=== PATIENT | female | born 1985 | race Two or more races ===

== ENCOUNTER 2024-08-16 13:56 | Emergency (ER) | payer MEDICAID, SELFPAY ==
[2024-08-16 14:24] VITALS: BP 108/69; PULSE 63; RESP 18; TEMP 37.1; O2SAT 100; BMI 24.4
--- NOTE | 2024-08-16 14:27 | XR_ITS ---
Examination: CT brain head without contrast. 2-D sagittal coronal reconstructions Date and time of exam:August 16, 2024 1544 hours INDICATIONS: Intermittent severe headache beginning 3 weeks ago CTDI: vol (mGy):47.2 DLP: (mGycm):914 Technique: Multiple CT axial sections of the brain have been obtained, 5 mm slice thickness. Contrast has not been administered. 2-D sagittal, coronal reconstructions have been obtained Low dose protocols were performed. One or more of the following dose reduction techniques were used; automated exposure control, adjustment of the mA and/or KV according to patient size, use of iterative reconstruction technique. Findings: No significant ventricular enlargement. Intra-axial or extra-axial hemorrhage density is not seen. No mass effect or midline shift Basal cisterns are not remarkable. Fourth ventricle is midline. Cranial vault intact. Impression: Negative for acute hemorrhage, mass effect or midline shift If new onset headaches persist, consider elective brain MRI follow-up
[2024-08-16 15:33] LABS: Basophils # (Auto) 0.1 Thou/mm3 (0.0-0.2); Basophils % (Auto) 1 % (0-2.5); Eosinophils % (Auto) 0 % (0-10); Hematocrit 40.7 % (36.0-46.0); Immature Granulocytes % (Auto) 1 % (0-0); Immature Granulocytes Auto 0.05 Thou/mm3 (0.00-0.00); Lymphocytes # (Auto) 2.4 Thou/mm3 (1.0-4.8); Lymphocytes % (Auto) 23 % (10-50); Mean Corpuscular HGB Conc 34.4 g/dl (31.0-37.0); Mean Corpuscular Hemoglobin 30.5 pg (25.0-35.0); Mean Corpuscular Volume 89 fL (80-100); Monocytes # (Auto) 0.8 Thou/mm3 (0.0-0.8); Monocytes % (Auto) 8 % (0-12); Neutrophils # (Auto) 7.4 Thou/mm3 (1.8-7.7); Neutrophils % (Auto) 69 % (37-80); Nucleated Red Blood Cell % 0 /100 WBC (0); Platelet Count 299 Thou/mm3 (140-440); RDW Standard Deviation 38.8 fL (36.4-46.3); Red Blood Count 4.59 Miln/mm3 (4.00-5.20); White Blood Count 10.8 Thou/mm3 (3.6-11.0)
[2024-08-16 15:52] LABS: HCG,Qualitative Serum Negative
[2024-08-16 15:57] LABS: Alanine Aminotransferase 16 U/L (10-49); Albumin, Serum 4.3 gm/dL (3.5-5.0); Albumin/Globulin Ratio 1.7 (1.2-2.2); Alkaline Phosphatase 57 U/L (46-116); Anion Gap 7 (7-16); Aspartate Amino Transferase 14 U/L (0-34); BUN/Creatinine Ratio 22 Ratio (12-20); Bilirubin,Total 0.8 mg/dL (0.3-1.2); Blood Urea Nitrogen 13 mg/dL (9-23); Calcium 9.3 mg/dL (8.3-10.6); Calcium (Corrected) 9.3 mg/dL (8.5-10.1); Carbon Dioxide 27.5 mMol/L (20.0-31.0); Chloride 107 mMol/L (98-107); Creatinine (Component) 0.6 mg/dL (0.6-1.3); Estimated Creatinine Clearance 99.3 mL/min (>60); Globulin 2.6 gm/dL (2.3-3.5); Glucose 92 mg/dL (74-106); Osmolality,Calculated 281 (275-295); Potassium 3.9 mMol/L (3.4-5.1); Sodium 141 mMol/L (136-145); Total Protein 6.9 gm/dL (5.7-8.2); eGFR > 60 See Note
--- NOTE | 2024-08-16 16:14 | EDNOTE_ITS ---
ED Headache RME/HPI General Chief Complaint: Headache Stated Complaint: Neck ache with Headache x 3 weeks off/on Time Seen by Provider: 08/16/24 14:27 Arrival date/time: 08/16/24 13:56 39-year-old female with no significant medical problems presents to the emergency department complains of headache ongoing intermittently for the last 3 weeks patient reports no fever nausea or vomiting reports no neck pain no difficulty with moving her neck patient is currently smiling Limitations: no limitations Related Data Previous Rx's ?Medication ?Instructions ?Recorded acetaminophen-caffeine 500 mg-65 1 tab PO Q6H PRN pain #30 tabs 08/16/24 mg tablet (Excedrin Tension Headache) ibuprofen 600 mg tablet 600 mg PO Q6H #30 tabs 08/16 Allergies Allergy/AdvReac Type Severity Reaction Status Date / Time No Known Allergies Allergy Verified 08/16/24 13:58 Review of Systems Review of Systems Systems Reviewed: All systems reviewed, normal except as documented Constitutional Constitutional: Reports system reviewed and no additional complaints, except as documented, Denies fever(s) and Reports headache(s) Eyes Eyes: Reports system reviewed and no additional complaints, except as documented and Denies blurry vision ENT Ears, Nose, Mouth, and Throat: Reports system reviewed and no additional complaints, except as documented, Reports headache(s) and Denies nasal congestion Cardiovascular Cardiovascular: Reports system reviewed and no additional complaints, except as documented, Denies chest pain and Denies dyspnea Respiratory Respiratory: Reports system reviewed and no additional complaints, except as documented, Denies chest congestion, Denies cough and Denies dyspnea Gastrointestinal Gastrointestinal: Reports system reviewed and no additional complaints, except as documented and Denies abdominal pain Integumentary/Breasts Skin/Breast: Reports system reviewed and no additional complaints, except as documented and Denies rash Neurologic Neurologic: Reports system reviewed and no additional complaints, except as documented, Reports as per HPI and Reports headache(s) Past Medical History Social History SMOKING STATUS: Never smoker ED Exam General Limitations: Present no limitations General appearance: Present alert and in no apparent distress Head Head exam: Present atraumatic, normocephalic and normal inspection Eye Eye exam: Present normal appearance, PERRL and EOMI; Absent conjunctival injection ENT ENT exam: Present normal exam, normal oropharynx and mucous membranes moist Neck Neck exam: Present normal inspection, full ROM and trachea midline Chest Chest inspection: Present normal inspection and symmetric chest wall rise Respiratory Respiratory exam: Present normal lung sounds bilaterally Cardiovascular Cardiovascular exam: Present regular rate, normal rhythm and normal heart sounds Abdominal Exam Abdominal exam: Present soft and normal bowel sounds Extremities Exam Extremities exam: Present normal inspection and full ROM Back Exam Back exam: Present normal inspection and full ROM Neurological Exam Neurological exam: Present alert, oriented X3, CN II-XII intact, normal gait and reflexes normal; Absent motor sensory deficit Psychiatric Psychiatric exam: Present normal affect and normal mood Skin Skin exam: Present warm, dry, intact and normal color Course Quality Measures none Orders Category Date Time Status CT head/brain wo con Stat Exams 08/16/24 14:27 Completed CBC Stat Lab 08/16/24 15:04 Completed CMP [Comprehensive Metabolic Panel] Stat Lab 08/16/24 15:04 Completed HCG,Qualitative Serum Stat Lab 08/16/24 15:04 Completed Ketorolac Inj [Toradol Inj] Med 08/16/24 16:14 Discontinued 30 mg IM X1 ONE Vital Signs Vital signs: Vital Signs Temperature 98.8 F 08/16/24 14:24 Pulse Rate 63 08/16/24 14:24 Respiratory Rate 18 08/16/24 14:24 Blood Pressure 108/69 08/16/24 14:24 Pulse Oximetry (%) 100 08/16/24 14:24 Oxygen Delivery Method Room Air 08/16/24 14:24 O2 saturation 100% room air within normal limits Headache MDM Narrative MDM Narrative:: 39-year-old female with no significant medical problems presents to the emergency department complains of headache ongoing intermittently for the last 3 weeks patient reports no fever nausea or vomiting reports no neck pain no difficulty with moving her neck patient is currently smiling On exam patient well-appearing patient does not appear ill or toxic patient does not appear in acute distress Patient has full range of motion of her neck no meningismus Imaging obtained no acute emergent findings noted Patient can pay medication discharge home with pain meds Patient discharged home in no distress to follow-up with primary care doctor in the next 24 to 48 hours and for any worsening symptoms to return to the ER immediately Patient data External records reviewed:: [facility] previous records Clinical information provided by:: patient Social determinants that could affect healthcare access:: none Patient has the following chronic illnesses:: None How is presenting disease/condition affected by chronic disease/condition?: no chronic disease Evaluation data The following diagnostics were reviewed and interpreted by me:: lab results and radiology exam(s) Lab and/or radiology exams considered but not ordered:: Labs and radiology obtained Interpretation Summary: Reviewed by me Medications / Prescriptions Medications or Prescriptions considered but not ordered:: Given Medication administrations:: Medication Administration History Discontinued Medications Ketorolac Tromethamine (Ketorolac Inj 30 Mg/Ml Vial) 30 mg IM X1 ONE Stop: 08/16/24 16:15 Last Admin: 08/16/24 16:19 Dose: 30 mg Documented By: Given Consultations Consultation(s) initiated? (list below): No Diagnosis Differential diagnosis headache: migraine, tension headache and headache Most likely diagnosis given after review of the tests above:: Headache Admission Indicated Admission indicated?: not indicated Admission Request Was there a request for admission?: No Disposition Plan Disposition Plan: Discharge Discharge Attestation Discharge Attestation: The patient and all family members were given an opportunity to ask questions and understood the discharge instructions. Discharge instructions specifically effects, indications for sooner follow up or return to the emergency department, and the expected course of current diagnosis. Patient condition: Stable Discharge Plan Plan Patient Disposition: HOME (Self Care) Disposition Comment: Stable Prescriptions/Referrals Prescriptions/Med Rec: New Excedrin Tension Headache 500-65 mg tablet 1 tab PO Q6H PRN (Reason: pain) Qty: 30 0RF ibuprofen 600 mg tablet 600 mg PO Q6H Qty: 30 0RF Referrals: Teresa Anthony NP [Primary Care Provider] - In 1 week Problem List Clinical Impression: Headache Patient/Caregiver Discharge Instructions Education Materials: Self-Care for Headaches Additional Instructions: Please follow up with your primary care doctor in the next 24-48hrs for any worsening symptoms return here immediately Print Language: Guatemalan Stand Alone Forms: [employer] Award Info., Work/School Release, Patient Portal Info Letter PA/WALT Supervising Physician RHETT/WALT Supervising Physician: Dr hassan
[2024-08-16] MEDS: KETOROLAC INJ 30 MG/ML VIAL IM (16:19)
== END 2024-08-16 16:24 | disposition home or self-care (01) ==
PROVIDERS: Nurse Practitioner Primary Care; Emergency Provider Emergency Medicine; PCP Nurse Practitioner Family
DX: R51.9 Headache, unspecified (principal)
CPT/HCPCS: 36415; 70450; 80053; 84703; 85025; 96372; 99284; J1885

== ENCOUNTER 2024-09-04 17:42 | Emergency (ER) | payer MEDICAID, SELFPAY ==
[2024-09-04 19:10] VITALS: BP 107/71; PULSE 73; RESP 18; TEMP 36.7; O2SAT 99; BMI 25.2
--- NOTE | 2024-09-04 19:16 | EDNOTE_ITS ---
ED Abdominal Pain RME/HPI General Chief Complaint: Abdominal Pain Stated complaint: BELLY PAIN BEGINNING UTI Time seen by provider: 09/04/24 18:05 Arrival date/time: 09/04/24 17:42 Source: patient, RN notes reviewed and old records reviewed Mode of arrival: ambulatory Limitations: no limitations RME / HPI RME / HPI narrative: 39yof presents to ED for 2-day history of vaginal discharge and irritation. Denies concern for STDs. No fever, N/V, abdominal pain, flank pain or dysuria reported. No medications or treatments since onset. Related Data Previous Rx's ?Medication ?Instructions ?Recorded acetaminophen-caffeine 500 mg-65 1 tab PO Q6H PRN pain #30 tabs 08/16/24 mg tablet (Excedrin Tension Headache) ibuprofen 600 mg tablet 600 mg PO Q6H #30 tabs 08/16 Allergies Allergy/AdvReac Type Severity Reaction Status Date / Time No Known Allergies Allergy Verified 08/16/24 13:58 Review of Systems Review of Systems Systems Reviewed: All systems reviewed, normal except as documented Constitutional Constitutional: Denies chills and Denies fever(s) Gastrointestinal Gastrointestinal: Denies abdominal pain, Denies nausea and Denies vomiting Genitourinary Genitourinary: Denies dysuria, Denies flank pain, Reports vaginal discharge and Reports vaginal pruritus Past Medical History Surgical History OTHER SURGICAL HX: denies pshx Social History SMOKING STATUS: Never smoker SUBSTANCE USE: does not use ALCOHOL: Never Past Medical History Comments PMH COMMENT: denies pmhx ED Exam General Limitations: Present no limitations General appearance: Present alert and in no apparent distress Head Head exam: Present atraumatic and normocephalic Eye Eye exam: Present normal appearance, PERRL and EOMI ENT ENT exam: Present normal exam and mucous membranes moist Neck Neck exam: Present normal inspection and full ROM Chest Chest inspection: Present normal inspection and symmetric chest wall rise Respiratory Respiratory exam: Present normal lung sounds bilaterally; Absent respiratory distress Cardiovascular Cardiovascular exam: Present regular rate and normal rhythm Abdominal Exam Abdominal exam: Present soft; Absent distention, tenderness, guarding or rebound External exam: Present other (Declined pelvic exam, will self swab) Extremities Exam Extremities exam: Present normal inspection and full ROM Back Exam Back exam: Absent CVA tenderness (R) or CVA tenderness (L) Neurological Exam Neurological exam: Present alert and oriented X3 Psychiatric Psychiatric exam: Present normal affect and normal mood Skin Skin exam: Present warm, dry, intact and normal color Course Quality Measures none Orders Category Date Time Status Bacterial Vaginal Panel Stat Lab 09/04/24 20:45 Completed HCG Qualitative,Urine Stat Lab 09/04/24 20:45 Completed UA [Urinalysis] Stat Lab 09/04/24 20:45 Completed Vital Signs Vital signs: Vital Signs Temperature 98.1 F 09/04/24 19:10 Pulse Rate 73 09/04/24 19:10 Respiratory Rate 18 09/04/24 19:10 Blood Pressure 107/71 09/04/24 19:10 Pulse Oximetry (%) 99 09/04/24 19:10 Oxygen Delivery Method Room Air 09/04/24 19:10 Abdominal Pain MDM MDM Narrative MDM Narrative:: 39yof presents to ED for 2-day history of vaginal discharge and irritation. Denies concern for STDs. No fever, N/V, abdominal pain, flank pain or dysuria reported. No medications or treatments since onset. UA negative. Vaginitis panel pending at time of discharge, patient understands results will not be completed until tomorrow morning. Stable for discharge. Patient data External records reviewed:: [facility] previous records (08/16/24 ED visit for headache) Clinical information provided by:: patient Social determinants that could affect healthcare access:: other (specify) (Poor access to healthcare, acculturation difficulty) Patient has the following chronic illnesses:: None How is presenting disease/condition affected by chronic disease/condition?: no chronic disease Evaluation data The following diagnostics were reviewed and interpreted by me:: lab results Lab and/or radiology exams considered but not ordered:: None Interpretation Summary: UA negative for leuks/nitrites Negative hCG Negative vaginitis panel Medications / Prescriptions Medications or Prescriptions considered but not ordered:: No antibiotics recommended at this time Medication administrations:: None Consultations Consultation(s) initiated? (list below): No Diagnosis Differential diagnosis abdominal pain: other (UTI, Soha, BV, STD) Most likely diagnosis given after review of the tests above:: Vaginitis Admission Indicated Admission indicated?: not indicated Admission Request Was there a request for admission?: No Disposition Plan Disposition Plan: Discharge Discharge Attestation Discharge Attestation: The patient and all family members were given an opportunity to ask questions and understood the discharge instructions. Discharge instructions specifically effects, indications for sooner follow up or return to the emergency department, and the expected course of current diagnosis. Patient condition: Stable Discharge Plan Plan Patient Disposition: HOME (Self Care) Patient condition on transfer: Stable Prescriptions/Referrals Prescriptions/Med Rec: No Action Excedrin Tension Headache 500-65 mg tablet 1 tab PO Q6H PRN (Reason: pain) Qty: 30 0RF ibuprofen 600 mg tablet 600 mg PO Q6H Qty: 30 0RF Referrals: No Primary/Family,Physician [Primary Care Provider] - In 1 week Problem List Clinical Impression: Vaginitis Patient/Caregiver Discharge Instructions Education Materials: Preventing Vaginitis Print Language: [place] Islander Stand Alone Forms: Amara Award Info., Patient Portal Info Letter PA/[employer] Supervising Physician RHETT/WALT Supervising Physician: Chuyita
[2024-09-04 21:27] LABS: Collection Type, Urine Clean Catch
[2024-09-04 21:37] LABS: Amorphous Crystals,Urine Present (Absent); Bacteria,Urine 1+; Bilirubin,Urine Negative (Negative); Blood,Urine Negative (Negative); Clarity,Urine Clear (Clear/Hazy); Color,Urine Lt-Yellow (Lt Yel-Yel); Glucose, Urine Negative (Negative); Ketones,Urine Negative (Negative); Leukocyte Esterase,Urine Negative (Negative); Nitrite,Urine Negative (Negative); PH,Urine 8.5 (5.0-7.0); Protein,Urine Trace (Neg - Trace); RBC,Urine 4 /hpf (0-3); Specific Gravity,Urine 1.027 (1.001-1.035); Squamous Epithelial Cell,Urine 3 /hpf (0-5); Urobilinogen,Urine Negative mg/dL (0.0-1.0); WBC,Urine < 1 /hpf (0-5)
[2024-09-04 21:39] LABS: HCG Qualitative,Urine Negative
[2024-09-05 08:47] LABS: BVAG Candida Negative (Negative); Bacterial Vaginosis Markers Negative (Negative); Candida glabrata Negative (Negative); Candida krusei PCR Negative (Negative); Trichomonas Negative (Negative)
== END 2024-09-04 22:21 | disposition home or self-care (01) ==
PROVIDERS: Physician Assistant; Emergency Provider Emergency Medicine
DX: N76.0 Acute vaginitis (principal)
CPT/HCPCS: 81001; 81025; 81514; 99283

== ENCOUNTER 2024-09-27 17:14 | Emergency (ER) | payer MEDICAID, SELFPAY ==
[2024-09-27 17:14] VITALS: BMI 25.9
[2024-09-27 18:12] VITALS: BP 112/74; PULSE 62; RESP 16; TEMP 37.2; O2SAT 99
--- NOTE | 2024-09-27 18:48 | XR_ITS ---
Examination: Pelvic ultrasound, transabdominal, complete Technique: Transabdominal ultrasound of the pelvis performed using grayscale imaging Date and time of exam: September hrs. Indications: Bilateral pelvic pain beginning one day ago Findings: Uterus 6.7 cm endometrial stripe 0.7 cm Mild fluid in the cul-de-sac Right ovary 2.9 cm arterial flow Left ovary 3.0 cm arterial flow Atelectasis versus Impression: No uterine mass or intrauterine gestation Left ovarian follicular cyst 19 x 15 mm
--- NOTE | 2024-09-27 18:55 | PD.EDFMALE ---
ED Female Urogenital RME/HPI General Chief complaint: Abdominal Pain Stated complaint: BILAT. LOWER ABD PAIN X1 DAY Time Seen by Provider: 09/27/24 18:48 Arrival date/time: 09/27/24 17:14 39F with no significant PMH presents to ED with several weeks of intermittent vulvar itching. She's also had several days of pelvic pain. Patient was here several weeks ago for this with normal UA and BV panel. Patient was given some ABX from clinic for UTI w/o relief. Patient denies concern for STD and possibility of as patient hasn't had any intercourse recently. Limitations: no limitations Related Data Previous Rx's ?Medication ?Instructions ?Recorded acetaminophen-caffeine 500 mg-65 1 tab PO Q6H PRN pain #30 tabs 08/16/24 mg tablet (Excedrin Tension Headache) ibuprofen 600 mg tablet 600 mg PO Q6H #30 tabs 08/16/24 hydrocortisone-aloe vera 1 % 1 applic topical BID #14.2 grams 09/27/24 topical cream (Cortisone with Aloe) Allergies Allergy/AdvReac Type Severity Reaction Status Date / Time No Known Allergies Allergy Verified 09/27/24 17:16 Review of Systems Review of Systems Systems Reviewed: All systems reviewed, normal except as documented Constitutional Constitutional: Reports system reviewed and no additional complaints, except as documented, Denies fever(s) and Denies headache(s) ENT Ears, Nose, Mouth, and Throat: Denies disequilibrium and Denies headache(s) Cardiovascular Cardiovascular: Reports system reviewed and no additional complaints, except as documented, Denies chest pain and Denies dyspnea Respiratory Respiratory: Reports system reviewed and no additional complaints, except as documented, Denies cough and Denies dyspnea Gastrointestinal Gastrointestinal: Reports system reviewed and no additional complaints, except as documented, Denies abdominal pain, Denies nausea and Denies vomiting Genitourinary Genitourinary: Reports as per HPI, Reports pelvic pain and Reports vaginal pruritus Neurologic Neurologic: Reports system reviewed and no additional complaints, except as documented, Denies confusion, Denies disequilibrium and Denies headache(s) Psychiatric Psychiatric: Denies confusion Past Medical History Social History SMOKING STATUS: Never smoker SUBSTANCE USE: does not use ED Exam General Limitations: Present no limitations General appearance: Present alert and in no apparent distress Head Head exam: Present atraumatic Eye Eye exam: Present normal appearance, PERRL and EOMI ENT ENT exam: Present normal exam, normal oropharynx and mucous membranes moist Neck Neck exam: Present normal inspection, full ROM and trachea midline Chest Chest inspection: Present normal inspection and symmetric chest wall rise Respiratory Respiratory exam: Present normal lung sounds bilaterally Cardiovascular Cardiovascular exam: Present regular rate, normal rhythm and normal heart sounds Abdominal Exam Abdominal exam: Present soft and normal bowel sounds Extremities Exam Extremities exam: Present normal inspection and full ROM Back Exam Back exam: Present normal inspection and full ROM Neurological Exam Neurological exam: Present alert, oriented X3 and CN II-XII intact Psychiatric Psychiatric exam: Present normal affect and normal mood Skin Skin exam: Present warm, dry, intact and normal color Course Quality Measures none Orders Category Date Time Status US pelvic complete Stat Exams 09/27/24 18:48 Completed Drug Screen,Urine Stat Lab 09/27/24 19:11 Completed HCG Qualitative,Urine Stat Lab 09/27/24 19:11 Completed Urinalysis, C/S if Indicated Stat Lab 09/27/24 19:11 Completed Vital Signs Vital signs: Vital Signs Temperature 98.9 F 09/27/24 18:12 Pulse Rate 62 09/27/24 18:12 Respiratory Rate 16 09/27/24 18:12 Blood Pressure 112/74 09/27/24 18:12 Pulse Oximetry (%) 99 09/27/24 18:12 Oxygen Delivery Method Room Air 09/27/24 18:12 O2 at 99% on RA and WNLs Urogenital - Female MDM Narrative MDM Narrative:: 39F with no significant PMH presents to ED with several weeks of intermittent vulvar itching. She's also had several days of pelvic pain. Patient was here several weeks ago for this with normal UA and BV panel. Patient was given some ABX from clinic for UTI w/o relief. Patient denies concern for STD and possibility of as patient hasn't had any intercourse recently. Physical exam with senior net architect reveals benign/normal external genitalia exam. No rash, redness, tenderness, or excoriations. No ab tenderness. Patient is afebrile, calm, and alert. US unremarkable. UA/tox screen clean. HCG neg. Patient data External records reviewed:: [facility] previous records Clinical information provided by:: patient Social determinants that could affect healthcare access:: none Patient has the following chronic illnesses:: none How is presenting disease/condition affected by chronic disease/condition?: no chronic disease Evaluation data The following diagnostics were reviewed and interpreted by me:: lab results and radiology exam(s) Lab and/or radiology exams considered but not ordered:: ordered Interpretation Summary: above Medications / Prescriptions Medications or Prescriptions considered but not ordered:: not ordered Medication administrations:: n/a Consultations Consultation(s) initiated? (list below): No Diagnosis Urogenital Female Differential Diagnosis: urinary tract infection, bacterial vaginosis, trichomoniasis, cervicitis, ovarian cyst, vaginitis, ruptured ovarian cyst, cyst of Bartholin's gland, cystitis, dysmenorrhea and other (irritation of vulva) Most likely diagnosis given after review of the tests above:: irritation of vulva Admission Indicated Admission indicated?: not indicated Admission Request Was there a request for admission?: No Disposition Plan Disposition Plan: Discharge Discharge Attestation Discharge Attestation: The patient and all family members were given an opportunity to ask questions and understood the discharge instructions. Discharge instructions specifically effects, indications for sooner follow up or return to the emergency department, and the expected course of current diagnosis. Patient condition: Stable Discharge Plan Plan Patient Disposition: HOME (Self Care) Disposition Comment: Stable Prescriptions/Referrals Prescriptions/Med Rec: New hydrocortisone-aloe vera [Cortisone with Aloe] 1 % cream 1 applic topical BID Qty: 14.2 0RF Rx Instructions: no more than 2 weeks No Action Excedrin Tension Headache 500-65 mg tablet 1 tab PO Q6H PRN (Reason: pain) Qty: 30 0RF ibuprofen 600 mg tablet 600 mg PO Q6H Qty: 30 0RF Referrals: Maira Jernigan PA-C [Primary Care Provider] - In 1 week Problem List Clinical Impression: Irritation of vulva Patient/Caregiver Discharge Instructions Education Materials: ED Dermatitis Nonspecific Ch Additional Instructions: Please follow-up with PCP /OBYGN within 24-48 hours and return immediately if symptoms worsen. Print Language: Syriac Stand Alone Forms: Patient Portal Info Letter RHETT/WALT Supervising Physician ARVIN Supervising Physician: Dr. Boogie
[2024-09-27 19:16] LABS: Collection Type, Urine Clean Catch
[2024-09-27 19:22] LABS: HCG Qualitative,Urine Negative
[2024-09-27 19:23] LABS: Bilirubin,Urine Negative (Negative); Blood,Urine Negative (Negative); Clarity,Urine Clear (Clear/Hazy); Color,Urine Lt-Yellow (Lt Yel-Yel); Culture Indicated,Urine Not Indicated; Glucose, Urine Negative (Negative); Ketones,Urine Negative (Negative); Leukocyte Esterase,Urine Negative (Negative); Nitrite,Urine Negative (Negative); Protein,Urine Negative (Neg - Trace); RBC,Urine 2 /hpf (0-3); Specific Gravity,Urine 1.021 (1.001-1.035); Squamous Epithelial Cell,Urine 1 /hpf (0-5); Urobilinogen,Urine Negative mg/dL (0.0-1.0); WBC,Urine < 1 /hpf (0-5)
[2024-09-27 19:28] LABS: Amphetamine/Methamp Scrn,U Negative (Negative); Barbiturate Screen,Urine Negative (Negative); Benzodiazepines Screen,Urine Negative (Negative); Benzoylecgonine Screen, Ur Negative (Negative); Fentanyl Screen,Urine Negative (Negative); Opiate Screen,Urine Negative (Negative); THC Screen,Urine Negative (Negative)
== END 2024-09-27 21:31 | disposition home or self-care (01) ==
PROVIDERS: Physician Assistant; Emergency Provider Emergency Medicine; PCP Physician Assistant
DX: N89.8 Other specified noninflammatory disorders of vagina (principal)
CPT/HCPCS: 76856; 80307; 81001; 81025; 99284